=== PATIENT | female | born 1970 | race Caucasian/White ===

== ENCOUNTER 2017-01-06 13:53 | Emergency (ER) | payer BC, OTHER ==
[2017-01-06 15:17] VITALS: BP 110/85
--- NOTE | 2017-01-06 15:48 | UC ---
Throat Pain/Nasal Gilson HPI - HPI Summary HPI Summary: THREE WEEKS OF SORE THROAT. FAMILY HAS HAD STREP. 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 NO FEVER. - History of Current Complaint Chief Complaint: UCGeneralIllness Stated Complaint: THROAT PAIN Time Seen by Provider: 01/06/17 14:13 Hx Obtained From: Patient Hx Last Menstrual Period: 12/25/16 Onset/Duration: Gradual Onset, Lasting Weeks, Still Present Severity: Mild Associated Signs & Symptoms: Positive: Hoarseness. Negative: Fever - Epiglottits Risk Factors Epiglottis Risk Factors: Negative - Allergies/Home Medications Allergies/Adverse Reactions: Allergies Allergy/AdvReac Type Severity Reaction Status Date / Time Bee Venom Allergy Anaphylatic Verified 01/06/17 15:18 Shock PMH/Surg Hx/FS Hx/Imm Hx Previously Healthy: Yes Endocrine History Of: Denies: Diabetes, Thyroid Disease Cardiovascular History Of: Denies: Cardiac Disorders, Hypertension, Pacemaker/ICD Respiratory History Of: Denies: COPD, Asthma GI/ History Of: Denies: Ulcer - Surgical History Surgical History: Yes Surgery Procedure, Year, and Place: 01/23 & 05/23 ;05/25 [facility] - ARTHROSCOPY/MENISCECTOMY - Family History Known Family History: Positive: Other - FAMILY MEMBERS HAVE HAD STREP - Social History Occupation: Employed Full-time Lives: With Family Alcohol Use: Rare Substance Use Type: None Smoking Status (MU): Never Smoked Tobacco - Immunization History Most Recent Influenza Vaccination: fall 2105 Review of Systems Constitutional: Negative Skin: Negative Eyes: Negative ENT: Sore Throat Respiratory: Negative Cardiovascular: Negative All Other Systems Reviewed And Are Negative: Yes Physical Exam Triage Information Reviewed: Yes Appearance: Well-Appearing, No Pain Distress, Well-Nourished Vital Signs: Initial Vital Signs Temp 98.4 F 01/06/17 15:10 Pulse 65 01/06/17 15:10 Resp 18 01/06/17 15:10 BP 110/85 01/06/17 15:10 Pulse Ox 100 01/06/17 15:10 Eye Exam: Normal Eyes: Positive: Conjunctiva Clear ENT: Positive: Hearing grossly normal, Pharyngeal erythema, TMs normal Dental Exam: Normal Neck: Positive: Enlarged Nodes @ - MILDLY ENLARGED LYMPH NODES ANTERIOR CERVICAL CHAIN. Negative: Nuchal Rigidity, Tenderness @ Respiratory Exam: Normal Respiratory: Positive: Chest non-tender, Lungs clear, Normal breath sounds, No respiratory distress Cardiovascular Exam: Normal Cardiovascular: Positive: RRR, No Murmur, Pulses Normal Musculoskeletal Exam: Normal Psychological Exam: Normal Skin Exam: Normal Throat Pain/Nasal Course/Dx - Differential Dx/Diagnosis Differential Diagnosis/HQI/PQRI: Pharyngitis, Sinusitis, Tonsillitis Provider Diagnoses: PHARYNGITIS Discharge - Discharge Plan Condition: Stable Disposition: HOME Patient Education Materials: Pharyngitis (ED) Referrals: Marj Saldana MD [Primary Care Provider] -
== END 2017-01-06 15:51 | disposition home or self-care (01) ==
LOC: UCEAST 13:53
DX: J02.9 Acute pharyngitis, unspecified (principal)
CPT/HCPCS: 87070; 87651; 99211; G0463

== ENCOUNTER → 2019-07-31 05:48 | Day surgery (SDC) | payer BC, OTHER ==
[~2019-07-31 05:48] MED LIST: Atracurium* 10 MG/ML 10 ML VIAL ONE; Buffered Lidocaine 1% SYRIN* 1 ML/SYRINGE INTRADERM ONE; Bupivacaine 0.25% EPI 200,000* 30 ML SDV ONE; Dexamethasone IV* 4 MG/ML 1 ML (4 MG) IV SLOW PU ONE; Dexamethasone IV* 4 MG/ML 1 ML (4 MG) ONE; DiMENhydriNATE IV* 50 MG/ML VIAL IV PUSH PRN; EPHEDrine (Pressors)* 50 MG/ML VIAL ONE; Famotidine IV* 10 MG/ML 2 ML (20 mg) IV ONE; Famotidine IV* 10 MG/ML 2 ML (20 mg) ONE; HYDROmorphone INJ1* 1 MG/ML SYRINGE IV PRN; Ibuprofen TAB* 600 MG PO SCH; Ketorolac INJ* 30 MG/ML 1 ML VIAL ONE; Lidocaine 2% PF * 5 ML VIAL ONE; Midazolam* 1 MG/ML 5 ML VIAL (5 MG) ONE; Naloxone* 0.4 MG/ML 1 ML VIAL IV PRN; Ondansetron INJ* 2 MG/ML VIAL IV PRN; Ondansetron INJ* 2 MG/ML VIAL ONE; Propofol* 10 MG/ML 20 ML BTL ONE; Scopolamine 1.5 mg* PATCH ONE; ceFOXitin 2 GM IVPREMIX* 2 GM/50 ML BAG ONE; fentaNYL* 50 MCG/ML 2 ML VIAL (100 MCG VIAL) IV PRN; fentaNYL* 50 MCG/ML 2 ML VIAL (100 MCG VIAL) ONE; fentaNYL* 50 MCG/ML 5 ML VIAL (250 MCG VIAL) ONE; oxyCODONE/Acetamin 5/325 MG* TAB PO PRN
[2019-07-31] MEDS: Lactated Ringers 1000 ML Bag* 1,000 ML IV SCH ×2 (06:37→12:50)
[2019-07-31 07:22] LABS: Hematocrit 31 % (35-47); Hemoglobin 10.7 g/dL (12.0-16.0); Mean Corpuscular HGB Conc 34 g/dL (31-36); Mean Corpuscular Hemoglobin 29 pg (27-31); Mean Corpuscular Volume 84 fL (80-97); Mean Platelet Volume 7.5 fL (7.4-10.4); Platelet Count 289 10^3/uL (150-450); Red Cell Distribution Width 13 % (10-15)
[2019-07-31 07:23] LABS: ABS Eosinophils 0.1 10^3/ul (0-0.6); ABS Lymphocytes 0.6 10^3/ul (1.0-4.8); ABS Monocytes 0.4 10^3/ul (0-0.8); ABS Neutrophils 2.9 10^3/ul (1.5-7.7); Eosinophil % 1.8 %; Nucleated Red Blood Cells % 0.1
[2019-07-31 11:29] LABS: Hematocrit 28 % (35-47); Hemoglobin 9.5 g/dL (12.0-16.0)
[2019-07-31 15:55] LABS: Hematocrit 30 % (35-47); Hemoglobin 10.1 g/dL (12.0-16.0)
[2019-07-31 19:16] VITALS: BP 98/59
--- NOTE | 2019-07-31 22:02 | OP ---
DATE OF OPERATION: 07/31/19 - [facility] DATE OF : 68 SURGEON: Mary Ann Azevedo MD PACKAGING MATERIALS INSPECTOR: Dr. Carlos Cole. ANESTHESIA: General endotracheal with local at incisional sites. PRE-OP DIAGNOSIS: Left chronic ectopic . POST-OP DIAGNOSIS: Left chronic ectopic . OPERATIVE PROCEDURE: Left salpingo-oophorectomy and a right salpingectomy. ESTIMATED BLOOD LOSS: 100 cc. IV FLUIDS: 2000 cc of crystalloid. URINE OUTPUT: 100 cc of clear yellow urine. FINDINGS: Revealed a chronic ectopic involving the left fallopian tube, ovary, and possible cornua. Normal-appearing right tube and ovary. Normal-appearing appendix. Normal appearing bowel. COMPLICATIONS: None apparent. DISPOSITION: Stable to recovery room. DESCRIPTION OF PROCEDURE: The patient was placed in dorsal lithotomy position. The abdomen was prepped and draped and the vagina was prepped and draped in a sterile standard fashion. The patient was identified with universal protocol for correct procedure, patient, and position. After universal protocol was completed, the bladder was drained of clear yellow urine 100 cc, self-cath was then removed. A sterile speculum was inserted and a Hulka clamp was placed. At that point, the speculum was removed and attention was then turned to the abdominal portion of the case. 4 cc of 0.25% Marcaine with epi was injected at the infraumbilical space and incision was made with the scalpel. This was carried down to the fascia. The fascia was grasped with Rodrigo and fascial incision was made using Metzenbaum scissors. The 0 Vicryl was used as stay sutures and a Shelby 10-12 mm port was placed. The scope was inserted. Pneumoperitoneum was created, confirming excellent placement. The right and then left 5-mm ports were placed laterally and inferior to the umbilical port using 0.25% Marcaine with epi at each site approximately 5 cc used and 5-mm blunt ports were then placed under direct visualization on both the right and the left. The pelvis was surveyed. A large hemorrhagic complex mass was noted in the left pelvic side wall, deemed to be the chronic ectopic . The right tube and ovary were noted to have normal appearance. The uterus was boggy consistent with effects of HCG. Bowel was noted to have a normal appearance and liver edge was evaluated and noted to be normal in appearance. At that point, a LigaSure was used to occlude the left infundibulopelvic ligament on the chronic ectopic, was then peeled off the posterior aspect of the uterus, and upon cautery of the ovarian ligament and the proximal fallopian tube, the specimen was noted to be free. The IP ligament was noted to have some oozing from it and ligature was applied again for hemostasis of the left IP ligament. At that point, the 10-mm scope was replaced with 5-mm scope and through the 10-mm port site, an EndoCatch bag was placed where the specimen was placed and then removed under direct visualization. We converted back to the 10 -mm scope and the right fallopian tube was then excised and removed using LigaSure for complete hemostasis. There was some oozing noted of the left posterior uterine wall, which Kleppinger was then applied to and hemostasis was conferred. The remainder of the right fallopian tube was removed through the 10 -mm port after conversion back to a 5-mm scope and suction irrigation was then performed using 10- mm suction ibm websphere portal developer for removal of copious clot from the posterior peritoneal pelvis. The side wall was again re-visualized and noted to be hemostatic, but given the denuded surface, the decision was made to proceed with placement of FloSeal, a thrombin product, on the left posterior aspect of the uterus, which was applied without complications. Hemostasis was noted and the patient was returned to dorsal lithotomy position and the pneumoperitoneum was released while directly visualizing pedicles and also upon removal of the 5-mm trocar, trocar sheath, Shelby trocar was then removed, and the fascia itself was reapproximated using 0 Vicryl in a running fashion. The skin at all 3 port sites were then reapproximated using 4-0 Monocryl in a subcuticular fashion. Mastisol and Steris were applied. Hulka clamp was then removed and hemostasis was noted. The patient was taken to recovery room in stable condition. All sponge, instrument, blade counts were correct throughout the case. The patient tolerated the procedure well. [id number]/[facility] #: [id number] [facility]
== END | disposition home or self-care (01) ==
LOC: OR 05:48
PROVIDERS: ATTEND Obstetrics & Gynecology
DX: O00.102 Left tubal pregnancy without intrauterine pregnancy (principal); N83.512 Torsion of left ovary and ovarian pedicle; E78.00 Pure hypercholesterolemia, unspecified; Z3A.00 Weeks of gestation of pregnancy not specified
CPT/HCPCS: 36415; 81025; 84702; 85014; 85018; 85025; 86850; 86900; 86901; 86922; 88305; 88321; A9270-GY; J0694; J1100; J1885; J2250; J2405; J2704; J3010